=== PATIENT | female | born 1965 | race Caucasian/White ===

== ENCOUNTER → 2017-03-30 | Outpatient (CLI) | payer OTHER ==
--- NOTE | 2017-03-30 12:08 | XR ---
EXAMINATION TYPE: XR shoulder complete RT DATE OF EXAM: 03/30/2017 COMPARISON: NONE HISTORY: Pain TECHNIQUE: Shoulder examined in 3 FINDINGS: The humeral head articulates with the glenoid. The acromio-clavicular junction is normal. No acute fractures or dislocations are evident. A follow up study can be performed 7-10 days from acute trauma for continued pain. IMPRESSION: 1. Normal Shoulder
== END ==
LOC: RADXRMAIN 11:44
PROVIDERS: ATTEND Emergency Medicine
DX: S43.401A Unspecified sprain of right shoulder joint, initial encounter (principal)

== ENCOUNTER 2018-06-18 10:09 | Observation (INO) | payer OTHER ==
[2018-06-18] MEDS ORDERED: NITROGLYCERIN OINT 1 INCH/GM PACKET TOPICAL STA (10:37)
[2018-06-18] MEDS ORDERED: ASPIRIN 81 MG PO STA (10:37)
[2018-06-18] MEDS ORDERED: ONDANSETRON 4 MG/2 ML VIAL IVP STA (10:41)
--- NOTE | 2018-06-18 10:41 | ED ---
General Adult HPI - General Chief complaint: Chest Pain Stated complaint: Chest Pain Time Seen by Provider: 06/18/18 10:10 Source: patient, RN notes reviewed Mode of arrival: wheelchair Limitations: no limitations - History of Present Illness Initial comments: This is a 52-year-old female presents emergency Department complaining of chest pain since 6:30 this morning. Patient states the pain radiates to her left shoulder and she had an episode of diaphoresis dizziness and nausea. Patient states she has not vomited. Patient states she was never short of breath. Patient states the pain is much better but continues at this time. Patient describes it as a pressure on her chest. Patient denies any history of diabetes hypertension high cholesterol. Patient states she has no family history that she knows of heart disease. Patient does not smoke. Patient has not had an episode of this in the past. Patient denies any abdominal pain patient denies any vomiting diarrhea. Patient denies headache patient denies any numbness or weakness. - Related Data Home Medications Medication Instructions Recorded Confirmed ALPRAZolam [Xanax] 0.5 mg PO HS PRN 06/18/18 06/18/18 Albuterol Inhaler [Ventolin Hfa 2 puff INHALATION RT-Q6H PRN 06/18/18 06/18/18 Inhaler] Cyanocobalamin (Vitamin B-12) 1,000 mcg PO DAILY 06/18/18 06/18/18 [Vitamin B-12] Montelukast Sodium [Singulair] 10 mg PO HS 06/18/18 06/18/18 Multivitamins, Thera [Multivitamin 1 tab PO DAILY 06/18/18 06/18/18 (formulary)] Topiramate [Topamax] 100 mg PO TID 06/18/18 06/18/18 Allergies Allergy/AdvReac Type Severity Reaction Status Date / Time codeine Allergy Unknown Verified 06/18/18 12:01 Review of Systems ROS Statement: Those systems with pertinent positive or pertinent negative responses have been documented in the HPI. ROS Other: All systems not noted in ROS Statement are negative. Past Medical History Past Medical History: Asthma, Seizure Disorder History of Any Multi-Drug Resistant Organisms: None Reported Past Surgical History: Tonsillectomy Past Psychological History: No Psychological Hx Reported Smoking Status: Never smoker Past Alcohol Use History: None Reported Past Drug Use History: None Reported General Exam - General Exam Comments Initial Comments: GENERAL: Patient is well-developed and well-nourished. Patient is nontoxic and well- hydrated and is in mild distress. ENT: Neck is soft and supple. No significant lymphadenopathy is noted. Oropharynx is clear. Moist mucous membranes. Neck has full range of motion without eliciting any pain. EYES: The sclera were anicteric and conjunctiva were pink and moist. Extraocular movements were intact and pupils were equal round and reactive to light. Eyelids were unremarkable. PULMONARY: Unlabored respirations. Good breath sounds bilaterally. No audible rales rhonchi or wheezing was noted. CARDIOVASCULAR: There is a regular rate and rhythm without any murmurs gallops or rubs. ABDOMEN: Soft and nontender with normal bowel sounds. No palpable organomegaly was noted. There is no palpable pulsatile mass. SKIN: Skin is clear with no lesions or rashes and otherwise unremarkable. NEUROLOGIC: Patient is alert and oriented x3. Cranial nerves II through XII are grossly intact. Motor and sensory are also intact. Normal speech, volume and content. Symmetrical smile. MUSCULOSKELETAL: Normal extremities with adequate strength and full range of motion. No lower extremity swelling or edema. No calf tenderness. LYMPHATICS: No significant lymphadenopathy is noted PSYCHIATRIC: Normal psychiatric evaluation. Normal interpersonal interactions appears functionally intact in deals appropriately with others. No signs of depression. No signs of anxiety. Limitations: no limitations Course Vital Signs 06/18/18 06/18/18 10:10 12:02 Temperature 98.5 F Pulse Rate 72 Respiratory 20 0 L Rate Blood Pressure 127/79 O2 Sat by Pulse 99 Oximetry Medical Decision Making - Medical Decision Making EKG shows normal sinus rhythm at 63 bpm AL interval is 120 QRS is 82 QT interval 412 QTC is 421. Patient's EKG shows no ST segment elevation or depression or T wave abnormalities are noted. Chest x-ray shows no acute abnormality. Patient received aspirin and Nitropaste to the emergency department she was chest pain-free when I reevaluated her. I spoke with Dr. Spicer he agreed to admit the patient admitted the patient I wrote admitting orders I started the patient heparin for the unstable angina continue the heparin Nitropaste and aspirin on the floor. I consult to cardiology. - Lab Data Result diagrams: 06/18/18 10:54 06/18/18 10:54 Lab Results 0906/18/18 06/18/18 Range/Units 10:54 10:54 10:54 WBC 5.9 (3.8-10.6) k/uL RBC 4.45 (3.80-5.40) m/uL Hgb 12.9 (11.4-16.0) gm/dL Hct 39.4 (34.0-46.0) % MCV 88.5 (80.0-100.0) fL MCH 29.0 (25.0-35.0) pg MCHC 32.8 (31.0-37.0) g/dL RDW 13.1 (11.5-15.5) % Plt Count 256 (150-450) k/uL Neutrophils % 58 % Lymphocytes % 26 % Monocytes % 5 % Eosinophils % 7 % Basophils % 1 % Neutrophils # 3.4 (1.3-7.7) k/uL Lymphocytes # 1.5 (1.0-4.8) k/uL Monocytes # 0.3 (0-1.0) k/uL Eosinophils # 0.4 (0-0.7) k/uL Basophils # 0.1 (0-0.2) k/uL PT (9.0-12.0) sec INR (<1.2) APTT (22.0-30.0) sec Sodium 144 (137-145) mmol/L Potassium 3.9 (3.5-5.1) mmol/L Chloride 113 H (98-107) mmol/L Carbon Dioxide 21 L (22-30) mmol/L Anion Gap 10 mmol/L BUN 11 (7-17) mg/dL Creatinine 0.96 (0.52-1.04) mg/dL Est GFR (CKD-EPI)AfAm 78 (>60 ml/min/1.73 sqM) Est GFR (CKD-EPI)NonAf 68 (>60 ml/min/1.73 sqM) Glucose 86 (74-99) mg/dL Calcium 9.3 (8.4-10.2) mg/dL Magnesium 2.1 (1.6-2.3) mg/dL Total Bilirubin 0.3 (0.2-1.3) mg/dL AST 18 (14-36) U/L ALT 24 (9-52) U/L Alkaline Phosphatase 50 (38-126) U/L Total Creatine Kinase 58 (30-135) U/L CK-MB (CK-2) 1.4 (0.0-2.4) ng/mL CK-MB (CK-2) Rel Index 2.4 Troponin I <0.012 (0.000-0.034) ng/mL Total Protein 6.3 (6.3-8.2) g/dL Albumin 3.5 (3.5-5.0) g/dL 06/18/18 Range/Units 10:54 WBC (3.8-10.6) k/uL RBC (3.80-5.40) m/uL Hgb (11.4-16.0) gm/dL Hct (34.0-46.0) % MCV (80.0-100.0) fL MCH (25.0-35.0) pg MCHC (31.0-37.0) g/dL RDW (11.5-15.5) % Plt Count (150-450) k/uL Neutrophils % % Lymphocytes % % Monocytes % % Eosinophils % % Basophils % % Neutrophils # (1.3-7.7) k/uL Lymphocytes # (1.0-4.8) k/uL Monocytes # (0-1.0) k/uL Eosinophils # (0-0.7) k/uL Basophils # (0-0.2) k/uL PT 10.0 (9.0-12.0) sec INR 1.0 (<1.2) APTT 23.8 (22.0-30.0) sec Sodium (137-145) mmol/L Potassium (3.5-5.1) mmol/L Chloride (98-107) mmol/L Carbon Dioxide (22-30) mmol/L Anion Gap mmol/L BUN (7-17) mg/dL Creatinine (0.52-1.04) mg/dL Est GFR (CKD-EPI)AfAm (>60 ml/min/1.73 sqM) Est GFR (CKD-EPI)NonAf (>60 ml/min/1.73 sqM) Glucose (74-99) mg/dL Calcium (8.4-10.2) mg/dL Magnesium (1.6-2.3) mg/dL Total Bilirubin (0.2-1.3) mg/dL AST (14-36) U/L ALT (9-52) U/L Alkaline Phosphatase (38-126) U/L Total Creatine Kinase (30-135) U/L CK-MB (CK-2) (0.0-2.4) ng/mL CK-MB (CK-2) Rel Index Troponin I (0.000-0.034) ng/mL Total Protein (6.3-8.2) g/dL Albumin (3.5-5.0) g/dL Critical Care Time Critical Care Time: Yes Total Critical Care Time: 35 Disposition Clinical Impression: Unstable angina pectoris Disposition: ADMITTED IP TO THIS HOSP Referrals: Nonstaff,Physician [Primary Care Provider] - 1-2 days Time of Disposition: 12:38
[2018-06-18 11:12] LABS: Basophils # (A) 0.1 k/uL (0-0.2); Basophils % (A) 1 %; Eosinophils # (A) 0.4 k/uL (0-0.7); Eosinophils % (A) 7 %; HCT 39.4 % (34.0-46.0); HGB 12.9 gm/dL (11.4-16.0); Lymphocytes # (A) 1.5 k/uL (1.0-4.8); Lymphocytes % (A) 26 %; MCHC 32.8 g/dL (31.0-37.0); MCV 88.5 fL (80.0-100.0); Mean Platelet Volume 6.6; Monocytes # (A) 0.3 k/uL (0-1.0); Monocytes % (A) 5 %; Neutrophils # (A) 3.4 k/uL (1.3-7.7); Neutrophils % (A) 58 %; Platelet Count 256 k/uL (150-450); RBC 4.45 m/uL (3.80-5.40); RDW 13.1 % (11.5-15.5); WBC 5.9 k/uL (3.8-10.6)
[2018-06-18 11:20] LABS: Partial Thromboplastin Time 23.8 sec (22.0-30.0)
[2018-06-18 11:31] LABS: Albumin 3.5 g/dL (3.5-5.0); Calcium 9.3 mg/dL (8.4-10.2); Magnesium 2.1 mg/dL (1.6-2.3); Potassium 3.9 mmol/L (3.5-5.1); Total Bilirubin 0.3 mg/dL (0.2-1.3); Total Protein 6.3 g/dL (6.3-8.2)
[2018-06-18 11:39] LABS: Creatine Kinase 58 U/L (30-135)
[2018-06-18 11:53] LABS: Creatine Kinase MB 1.4 ng/mL (0.0-2.4); Troponin I <0.012 ng/mL (0.000-0.034)
--- NOTE | 2018-06-18 12:01 | XR ---
EXAMINATION TYPE: XR chest 2V DATE OF EXAM: 06/18/2018 COMPARISON: None HISTORY: 52-year-old female with chest pain TECHNIQUE: Frontal and lateral views FINDINGS: The cardiomediastinal silhouette, aorta, and pulmonary vasculature are within normal limits. A trace pleural effusion is noted on the lateral view. Old healed bilateral rib fracture deformities. IMPRESSION: Trace effusion noted on the lateral view. Otherwise, no acute process seen.
[2018-06-18] MEDS ORDERED: HEPARIN SODIUM,PORCINE 5,000 UNIT/ML 1 ML VIAL IV ONE (12:36)
[2018-06-18] MEDS ORDERED: NITROGLYCERIN SL TABS 0.4 MG TAB SUBLINGUAL PRN (12:38)
[2018-06-18] MEDS ORDERED: HEPARIN SOD,PORK IN 0.45% NACL 25,000 UNIT in 0.45% NACL 1 500ML.BAG IV SCH (12:45)
[2018-06-18] MEDS ORDERED: ALPRAZolam 0.5 MG TAB PO PRN (15:44)
[2018-06-18] MEDS ORDERED: ALBUTEROL NEBULIZED 2.5 MG/3 ML INHALATION PRN (15:44)
--- NOTE | 2018-06-18 15:58 | P.HPIM ---
History of Present Illness H&P Date: 06/18/18 The patient is a 51-year-old female with past medical history of asthma, seasonal allergies, and seizure disorder, presented to the ED for acute onset of substernal chest pain. The patient notes that her pain started this morning when she arrived to the hospital with her who was scheduled to undergo a cardiac stress test at 7 am. While the patient's was undergoing the stress test, she began having 10/10, substernal, pressure-like chest pain, with radiation to the right arm, with associated shortness of breath, nausea, vomiting, and dizziness. The pain was relieved with sublingual nitroglycerin, and had no pleuritic component. She has never had such pain before. While in the ED, the pain gradually resolved over the following 2-4 hours. The patient denied any fever, cough, chills, abdominal pain, diarrhea, constipation, visual disturbances, headaches, recent travel, lower extremity swelling, or calf pain. The patient did endorse having to take long prednisone taper courses during her childhood. Review of Systems Pertinent positives and negatives as discussed in HPI, a complete review of systems was performed and all other systems are negative. Past Medical History Past Medical History: Asthma, Seizure Disorder Additional Past Medical History / Comment(s): Last seizure about 6 yrs ago, migraines. History of Any Multi-Drug Resistant Organisms: None Reported Past Surgical History: Tonsillectomy Past Anesthesia/Blood Transfusion Reactions: No Reported Reaction Smoking Status: Never smoker - Past Family History Father Family Medical History: Hyperlipidemia Additional Family Medical History / Comment(s): Pt does not know father's medical history other than he has high cholesterol. Mother History Unknown: Yes Additional Family Medical History / Comment(s): Pt states her mother did not discuss her medical history. She at the age of 77yrs. Medications and Allergies Home Medications Medication Instructions Recorded Confirmed Type ALPRAZolam [Xanax] 0.5 mg PO HS PRN 06/18/18 06/18/18 History Albuterol Inhaler [Ventolin Hfa 2 puff INHALATION RT-Q6H PRN 06/18/18 06/18/18 History Inhaler] Cyanocobalamin (Vitamin B-12) 1,000 mcg PO DAILY 06/18/18 06/18/18 History [Vitamin B-12] Montelukast Sodium [Singulair] 10 mg PO HS 06/18/18 06/18/18 History Multivitamins, Thera [Multivitamin 1 tab PO DAILY 06/18/18 06/18/18 History (formulary)] Topiramate [Topamax] 100 mg PO TID 06/18/18 06/18/18 History Allergies Allergy/AdvReac Type Severity Reaction Status Date / Time codeine Allergy Unknown Verified 06/18/18 12:01 Iodinated Contrast- Oral and Allergy Anaphylaxis Verified 06/18/18 14:04 IV Dye peanut Allergy Anaphylaxis Verified 06/18/18 14:04 shellfish derived [Shellfish] Allergy Anaphylaxis Verified 06/18/18 14:04 tree nut Allergy Anaphylaxis Verified 06/18/18 14:04 Physical Exam Vitals: Vital Signs Temp Pulse Pulse Resp BP BP Pulse Ox 06/18/18 14:11 75 18 06/18/18 13:55 97.7 F 75 18 113/70 99 06/18/18 13:47 98.5 F 67 18 103/68 100 06/18/18 13:39 67 18 103/68 100 06/18/18 12:02 0 L 06/18/18 10:10 98.5 F 72 20 127/79 99 Intake and Output 06/18/18 06/18/18 06/18/18 06:59 14:59 22:59 Intake Total 150 Balance 150 Intake: Amount of Fluid Infused ( 150 ml) Other: Voiding Method Toilet Weight 62.8 kg General: non toxic, no distress, appears at stated age, normal weight Derm: no unusual rashes/lesions no unusual ecchymoses, warm, dry Head: atraumatic, normocephalic, symmetric Eyes: EOMI, no lid lag, anicteric sclera, pupils equal round reactive to light ENT: Nose and ears atraumatic, no thrush, no pharyngeal erythema Neck: No thyromegaly, no cervical lymphadenopathy, trachea midline, supple Mouth: no lip lesion, mucus membranes moist Cardiovascular: S1S2 reg, no murmur, positive posterior tibial pulse bilateral, no edema, capillary refill less than 2 seconds Lungs: CTA bilateral, no rhonchi, no rales , no accessory muscle use Abdominal: soft, nontender to palpation, no guarding, no appreciable organomegaly, normal bowel sounds Ext: no gross muscle atrophy, muscle strength 5 out of 5 in all 4 extremities grossly, no contractures, Neuro: CN II-XI grossly intact, light touch intact all 4 extremities, finger to nose within normal limits, Psych: Alert, oriented, appropriate affect Results CBC & Chem 7: 06/18/18 10:54 06/18/18 10:54 Labs: Abnormal Lab Results - Last 24 Hours (Table) 06/18/18 Range/Units 10:54 Chloride 113 H (98-107) mmol/L Carbon Dioxide 21 L (22-30) mmol/L Thrombosis Risk Factor Assmnt - Choose All That Apply Any of the Below Risk Factors Present?: Yes Each Factor Represents 1 point: Age 41-60 years Other Risk Factors: No Other congenital or acquired thrombophilia - If yes, enter type in comment: No Thrombosis Risk Factor Assessment Total Risk Factor Score: 1 Thrombosis Risk Factor Assessment Level: Low Risk Assessment and Plan Plan: Chest pain, suspected unstable angina - C/w Heparin infusion - S/p Aspirin 325 mg. C/w ASA 81 mg qd. - Will trend troponin - Order Echocardiogram - C/w Telemetry monitoring - Will start on Plavix - Nitroglycerin patch - Cardiology consulted, will await recs Seizure disorder - C/w home dose Topamax Asthma - C/w Albuterol inhaler prn and Singulair Seasonal allergies - Flonase prn DVT//GI prophylaxis - Heparin infusion for now - No indication for GI prophylaxis The patient is admitted with an anticipated greater than 2 midnight stay for evaluation of chest pain CODE STATUS:Full-code Discussed with: Patient Anticipated discharge date: 06/20/[address]: Home A total of 70 minutes was spent on the care of this complex patient more than 50 % of the time was spent in counseling and care coordination.
[2018-06-18 17:35] LABS: Creatine Kinase 45 U/L (30-135)
[2018-06-18 17:48] LABS: Creatine Kinase MB 1.1 ng/mL (0.0-2.4); Troponin I <0.012 ng/mL (0.000-0.034)
[2018-06-18] MEDS: TOPIRAMATE 100 MG TAB PO SCH ×2 (19:00→19:52)
[2018-06-18] MEDS: NITROGLYCERIN OINT 1 INCH/GM PACKET TOPICAL SCH (19:00)
[2018-06-18] MEDS: CLOPIDOGREL 75 MG TAB PO SCH (19:03)
[2018-06-18 19:45] VITALS: RESP 16
[2018-06-18] MEDS ORDERED: MONTELUKAST 10 MG TAB PO SCH (21:00)
[2018-06-18 23:42] LABS: Creatine Kinase 44 U/L (30-135)
[2018-06-18 23:55] LABS: Creatine Kinase MB 0.9 ng/mL (0.0-2.4); Troponin I <0.012 ng/mL (0.000-0.034)
[2018-06-19] MEDS: NITROGLYCERIN OINT 1 INCH/GM PACKET TOPICAL SCH ×2 (00:28→05:23)
[2018-06-19 03:02] VITALS: TEMP 98.3
[2018-06-19 07:26] LABS: HGB 11.8 gm/dL (11.4-16.0); MCHC 32.7 g/dL (31.0-37.0); MCV 88.7 fL (80.0-100.0); Mean Platelet Volume 6.7; Platelet Count 223 k/uL (150-450); RBC 4.06 m/uL (3.80-5.40); RDW 13.2 % (11.5-15.5); WBC 4.9 k/uL (3.8-10.6)
[2018-06-19 07:54] LABS: Calcium 8.7 mg/dL (8.4-10.2); Potassium 3.9 mmol/L (3.5-5.1)
[2018-06-19] MEDS ORDERED: ACETAMINOPHEN TAB 325 MG TAB PO PRN (08:37)
[2018-06-19] MEDS ORDERED: ASPIRIN 325 MG TAB PO SCH (09:00)
[2018-06-19] MEDS ORDERED: CYANOCOBALAMIN 500 MCG TAB PO SCH (09:00)
--- NOTE | 2018-06-19 10:27 | ECHOF ---
Referral Reason:Chest pain MEASUREMENTS -------- HEIGHT: 162.6 cm WEIGHT: 62.6 kg BP: 113/70 RVIDd: 2.3 cm (< 3.3) IVSd: 1.1 cm (0.6 - 1.1) LVIDd: 3.7 cm (3.9 - 5.3) LVPWd: 0.7 cm (0.6 - 1.1) IVSs: 1.0 cm LVIDs: 2.9 cm LVPWs: 1.1 cm LA Diam: 3.3 cm (2.7 - 3.8) Ao Diam: 3.1 cm (2.0 - 3.7) AV Cusp: 1.9 cm (1.5 - 2.6) LA Diam: 2.9 cm (2.7 - 3.8) MV EXCURSION: 16.594 mm (> 18.000) MV EF SLOPE: 114 mm/s (70 - 150) EPSS: 0.5 cm MV E Scott: 0.76 m/s MV DecT: 193 ms MV A Scott: 0.69 m/s MV E/A Ratio: 1.10 RAP: 5.00 mmHg RVSP: 18.36 mmHg FINDINGS -------- Sinus rhythm. This was a technically good study. LV size, wall thickness and systolic function are normal, with an EF greater than 55%. The left xenia tricular size is normal. The right ventricle is normal in size. The left atrial size is normal. The right atrial size is normal. The aortic valve is trileaflet, and appears structurally normal. No aortic stenosis or regurgitation. Mild mitral regurgitation is present. Mild tricuspid regurgitation present. There is no evidence of pulmonary hypertension. The right v entricular systolic pressure, as measured by Doppler, is 18.36mmHg. There is no pulmonic regurgitation present. The aortic root size is normal. There is no pericardial effusion. CONCLUSIONS -------- 1. The left ventricular size is normal. 2. The right ventricle is normal in size. 3. The left atrial size is normal. 4. The right atrial size is normal. 5. The aortic valve is trileaflet, and appears structurally normal. No aortic stenosis or regurgitati on. 6. Mild mitral regurgitation is present. 7. Mild tricuspid regurgitation present. 8. There is no evidence of pulmonary hypertension. 9. The right ventricular systolic pressure, as measured by Doppler, is 18.36mmHg. 10. There is no pulmonic regurgitation present. 11. The aortic root size is normal. 12. There is no pericardial effusion. [employer]: Mony Romano RDCS
--- NOTE | 2018-06-19 12:27 | P.CRDCN ---
History of Present Illness History of present illness: Mrs. Roberts is a pleasant 52-year-old female past medical history significant for asthma and seizure disorder. She denies history of coronary artery disease, hypertension, dyslipidemia or diabetes mellitus. She has never seen a marketing planning manager for any reason. We have been asked to see her in consultation for chest pain. She states yesterday she was with her while he was undergoing a stress test. She hadn't yet eaten for the day. Once her was done they were walking out to the car and she started feeling a heavy pressure sensation in her chest. They sat down in the car and were going to get something to eat, however, the discomfort in her chest was persisting and she was starting to become light headed, nauseated and mildly diaphoretic. She denies shortness of breath or palpitations. Her pain ultimately subsided on its own with no specific alleviating factors. Nitropaste was applied in ED but was causing a headache so was removed. EKG reveals sinus mechanism with no acute ST or T-wave abnormalities. Chest xray negative for an acute cardiopulmonary process. Laboratory data reviewed, hgb 11.8, plt 223, sodium 144, potassium 3.9, creatinine 1.01, magnesium 2.1, cardiac enzymes negative x3, HDL 56, LDL 85. She takes no daily cardiac medications. She is on Topamax, Singulair, Ventolin and Xanax. She has never had a stress echocardiogram to review. Review of Systems At the time of my exam: CONSTITUTIONAL: Denies fever. Denies chills. EYES: Denies blurred vision. Denies vision changes. Denies eye pain. EARS, NOSE, MOUTH & THROAT: Denies headache. Denies sore throat. Denies ear pain. CARDIOVASCULAR: Denies chest pain. Denies shortness of breath. Denies orthopnea. Denies PND. Denies palpitations. RESPIRATORY: Denies cough. GASTROINTESTINAL: Denies abdominal pain. Denies diarrhea. Denies constipation. Denies nausea. Denies vomiting. MUSCULOSKELETAL: Denies myalgias. INTEGUMENTARY: Denies pruitis. Denies rash. NEUROLOGIC: Denies numbness. Denies tingling. Denies weakness. PSYCHIATRIC: Denies anxiety. Denies depression. ENDOCRINE: Denies fatigue. Denies weight change. Denies polydipsia. Denies polyurina. GENITOURINARY: Denies burning, hematuria or urgency with micturation. HEMATOLOGIC: Denies history of anemia. Denies bleeding. Past Medical History Past Medical History: Asthma, Seizure Disorder Additional Past Medical History / Comment(s): Last seizure about 6 yrs ago, migraines. History of Any Multi-Drug Resistant Organisms: None Reported Past Surgical History: Tonsillectomy Past Anesthesia/Blood Transfusion Reactions: No Reported Reaction Smoking Status: Never smoker - Past Family History Father Family Medical History: Hyperlipidemia Additional Family Medical History / Comment(s): Pt does not know father's medical history other than he has high cholesterol. Mother History Unknown: Yes Additional Family Medical History / Comment(s): Pt states her mother did not discuss her medical history. She at the age of 77yrs. Medications and Allergies Home Medications Medication Instructions Recorded Confirmed Type ALPRAZolam [Xanax] 0.5 mg PO HS PRN 06/18/18 06/18/18 History Albuterol Inhaler [Ventolin Hfa 2 puff INHALATION RT-Q6H PRN 06/18/18 06/18/18 History Inhaler] Cyanocobalamin (Vitamin B-12) 1,000 mcg PO DAILY 06/18/18 06/18/18 History [Vitamin B-12] Montelukast Sodium [Singulair] 10 mg PO HS 06/18/18 06/18/18 History Multivitamins, Thera [Multivitamin 1 tab PO DAILY 06/18/18 06/18/18 History (formulary)] Topiramate [Topamax] 100 mg PO TID 06/18/18 06/18/18 History Allergies Allergy/AdvReac Type Severity Reaction Status Date / Time codeine Allergy Unknown Verified 06/18/18 12:01 Iodinated Contrast- Oral and Allergy Anaphylaxis Verified 06/18/18 14:04 IV Dye peanut Allergy Anaphylaxis Verified 06/18/18 14:04 shellfish derived [Shellfish] Allergy Anaphylaxis Verified 06/18/18 14:04 tree nut Allergy Anaphylaxis Verified 06/18/18 14:04 Physical Exam Vitals: Vital Signs Temp Pulse Pulse Resp BP BP Pulse Ox 06/19/18 08:00 16 06/19/18 07:52 98.3 F 72 16 102/64 98 06/19/18 04:00 16 06/19/18 03:01 98.3 F 74 16 98/59 99 06/19/18 00:00 16 06/18/18 23:34 99.5 F 84 16 106/67 96 06/18/18 19:59 16 06/18/18 19:44 97.9 F 69 16 102/64 97 06/18/18 16:00 75 18 06/18/18 14:11 75 18 06/18/18 13:55 97.7 F 75 18 113/70 99 06/18/18 13:47 98.5 F 67 18 103/68 100 06/18/18 13:39 67 18 103/68 100 Intake and Output 06/18/18 06/19/18 06/19/18 22:59 06:59 14:59 Intake Total 113.22 Balance 113.22 Intake: Intake, IV Titration 113.22 Amount Heparin Sod,Pork in 0.45% 113.22 NaCl 25,000 unit In 0.45 % NaCl 1 500ml.bag @ 12 UNITS/KG/HR 14.8 mls/hr IV .Q24H [facility] Rx#: [id number] Other: Voiding Method Toilet Toilet Toilet # Voids 2 3 Blood pressure 102/64 heart rate 72 afebrile maintaining oxygen saturation on room air GENERAL: This is a 52-year-old female in no apparent distress at the time of my examination. HEENT: Head is atraumatic, normocephalic. Pupils are equal, round. Sclerae anicteric. Conjunctivae are clear. Mucous membranes of the mouth are moist. Neck is supple. There is no jugular venous distention. No carotid bruit is heard. LUNGS: Clear to auscultation no wheezes, rales or rhonchi. No chest wall tenderness is noted on palpation or with deep breathing. HEART: Regular rate and rhythm without murmurs, rubs or gallops. S1 and S2 heard. ABDOMEN: Soft, nontender. Bowel sounds are heard. No organomegaly noted. EXTREMITIES: No evidence of peripheral edema and no calf tenderness noted. VASCULAR: Radial and dorsalis pedis pulses palpated, no evidence of clubbing. NEUROLOGIC: Patient is awake, alert and oriented x3. Results 06/19/18 06:31 06/19/18 06:31 Cardiac Enzymes 06/18/18 06/18/18 Range/Units 16:58 22:53 CK-MB (CK-2) 1.1 0.9 (0.0-2.4) ng/mL Troponin I <0.012 <0.012 (0.000-0.034) ng/mL Coagulation 06/18/18 06/19/18 Range/Units 19:55 06:31 APTT 37.4 H 48.7 H (22.0-30.0) sec Lipids 06/19/18 Range/Units 06:31 Triglycerides 106 (<150) mg/dL Cholesterol 162 (<200) mg/dL HDL Cholesterol 56 (40-60) mg/dL CBC 06/19/18 Range/Units 06:31 WBC 4.9 (3.8-10.6) k/uL RBC 4.06 (3.80-5.40) m/uL Hgb 11.8 (11.4-16.0) gm/dL Hct 36.0 (34.0-46.0) % Plt Count 223 (150-450) k/uL Comprehensive Metabolic Panel 06/19/18 Range/Units 06:31 Sodium 144 (137-145) mmol/L Potassium 3.9 (3.5-5.1) mmol/L Chloride 118 H (98-107) mmol/L Carbon Dioxide 20 L (22-30) mmol/L BUN 14 (7-17) mg/dL Creatinine 1.01 (0.52-1.04) mg/dL Glucose 80 (74-99) mg/dL Calcium 8.7 (8.4-10.2) mg/dL Current Medications Generic Name Dose Route Start Last Admin Trade Name Freq PRN Reason Stop Dose Admin Acetaminophen 650 mg 06/19/18 08:37 06/19/18 08:40 Tylenol Tab PO 650 mg Q6HR PRN Administration Fever and/ or Mild Pain Albuterol Sulfate 2.5 mg 06/18/18 15:44 Ventolin Nebulized INHALATION RT-Q6H PRN Shortness Of Breath Alprazolam 0.5 mg 06/18/18 15:44 Xanax PO HS PRN Anxiety Aspirin 325 mg 06/19/18 09:00 Aspirin PO DAILY [facility] Clopidogrel Bisulfate 75 mg 06/18/18 16:00 06/18/18 19:03 Plavix PO 75 mg DAILY [facility] Administration Cyanocobalamin 1,000 mcg 06/19/18 09:00 Vitamin B-12 PO DAILY [facility] Montelukast Sodium 10 mg 06/18/18 21:00 06/18/18 19:52 Singulair PO 10 mg HS [facility] Administration Nitroglycerin 0.4 mg 06/18/18 12:38 Nitrostat SUBLINGUAL Q5M PRN Chest Pain Topiramate 100 mg 06/18/18 16:00 06/18/18 19:52 Topamax PO 100 mg TID [facility] Administration Intake and Output 06/18/18 06/19/18 06/19/18 22:59 06:59 14:59 Intake Total 113.22 Balance 113.22 Intake: Intake, IV Titration 113.22 Amount Heparin Sod,Pork in 0.45% 113.22 NaCl 25,000 unit In 0.45 % NaCl 1 500ml.bag @ 12 UNITS/KG/HR 14.8 mls/hr IV .Q24H [facility] Rx#: [id number] Other: Voiding Method Toilet Toilet Toilet # Voids 2 3 06/19/18 06:31 06/19/18 06:31 Assessment and Plan Assessment: ASSESSMENT Chest pain, atypical. An acute coronary event has been ruled out with no EKG evidence of ischemia and negative cardiac enzymes. Asthma PLAN Obtain 2D echocardiogram and doppler study to assess cardiac structure and function. Perform stress echocardiogram to assess for stress induced cardiac ischemia. If stress test is normal she is stable from a cardiac perspective. Follow up with Dr. Sosa in 2-3 weeks. Thank you kindly for this consultation. Nurse Practitioner note has been reviewed, I agree with a documented findings and plan of care. Patient was seen and examined.
[2018-06-19 12:39] VITALS: BP 95/65; PULSE 70
[2018-06-19] MEDS: CLOPIDOGREL 75 MG TAB PO SCH (13:04)
[2018-06-19] MEDS: TOPIRAMATE 100 MG TAB PO SCH (13:04)
--- NOTE | 2018-06-19 19:30 | P.DS ---
Providers Date of admission: 06/18/18 12:38 Expected date of discharge: 06/19/18 Attending physician: Sean Roberts MD Consults: 06/18/18 12:38 Consult Physician Urgent Consulting Provider: [facility] Consult Reason/Comments: Unstable angina Do you want consulting provider notified?: Yes Primary care physician: Physician Nonstaff Hospital Course: The patient is a 51-year-old female with a past medical history of asthma, and seizure disorder who presented to the ED for acute onset of substernal chest pain. The pain was 10 out of 10, pressure-like, with radiation to the right arm , and associated shortness of breath with nausea, vomiting, and dizziness. The patient's EKG and troponins were negative. Cardiology was consulted and recommended an exercise stress test with subsequent failed to show any ischemia. The patient underwent an echocardiogram which showed normal left ventricular EF of 55% with mild MR and mild TR. The patient is presently stable , and ready for discharge home with follow-up with cardiology as an outpatient. Physical Examination General: Awake, alert, in no acute distress HEENT: NC/AT, anicteric sclerae, moist conjunctiva, no lid-lag, PERRLA, oropharynx clear, no erythema, exudates Cardiovascular: S1/S2 wnl, no murmurs, rubs, or gallops Lungs: Clear to auscultation, normal respiratory effort, no accessory muscle use Abdominal: Soft, nontender, non-distended, no guarding, rebound, or rigidity, normoactive bowel sounds Skin: Warm, dry Extremities: No edema or contractures Psychiatric: Alert and oriented to person, place and time, appropriate affect, Intact judgment Neuro: CN II-XI grossly intact, sensation to light touch grossly present throughout, no focal sensory deficits Discharge diagnosis: Chest pain, unspecified, ischemic w/u negative; Asthma, Seizure disorder A total of 60 minutes of time were spent preparing this complex discharge summary. Pertinent Studies: Echocardiogram: LVEF greater than 55%, mild MR, mild TR, RVSP 18.36 mmHg. Patient Condition at Discharge: Stable Plan - Discharge Summary Discharge Rx Participant: No New Discharge Prescriptions: Continue Albuterol Inhaler [Ventolin Hfa Inhaler] 2 puff INHALATION RT-Q6H PRN PRN Reason: Shortness Of Breath Topiramate [Topamax] 100 mg PO TID Multivitamins, Thera [Multivitamin (formulary)] 1 tab PO DAILY Montelukast Sodium [Singulair] 10 mg PO HS Cyanocobalamin (Vitamin B-12) [Vitamin B-12] 1,000 mcg PO DAILY ALPRAZolam [Xanax] 0.5 mg PO HS PRN PRN Reason: Anxiety Discharge Medication List ALPRAZolam [Xanax] 0.5 mg PO HS PRN 06/18/18 [History] Albuterol Inhaler [Ventolin Hfa Inhaler] 2 puff INHALATION RT-Q6H PRN 06/18/18 [ History] Cyanocobalamin (Vitamin B-12) [Vitamin B-12] 1,000 mcg PO DAILY 06/18/18 [ History] Montelukast Sodium [Singulair] 10 mg PO HS 06/18/18 [History] Multivitamins, Thera [Multivitamin (formulary)] 1 tab PO DAILY 06/18/18 [History ] Topiramate [Topamax] 100 mg PO TID 06/18/18 [History] Follow up Appointment(s)/Referral(s): Nonstaff,Physician [Primary Care Provider] - 1-2 days Ray Sosa MD [STAFF PHYSICIAN] - 1-2 Days (Office will call in a few days with an appt) Patient Instructions/Handouts: Chest Pain (ED) Discharge Disposition: HOME SELF-CARE
--- NOTE | 2018-06-22 09:29 | P.STRESS ---
- Stress Test Note Stress Test Results/Findings: Exam Performed: stress echo exercise Exam Date: 06/19/18 Reason for Exam: chest pain Height: 5 ft 4 in Weight: 62.8 kg Protocol: Echo Stress Stage: 2 Duration of Exercise: 6:17 Resting Heart Rate: 76 Resting Blood Pressure: 102/75 Maximum Achieved Heart Rate: 157 Maximum Achieved Blood Pressure: 131/72 85% PMHR: 142 100% PMHR: 167 METS: 7.3 Technologist Comment: Stress Test Results/Findings: This is a 52-year-old female with history of COPD being evaluated for symptoms of chest pain. Patient EKG showed sinus rhythm with normal SC interval and QRS duration with mild nonspecific ST-T changes. Blood pressure at rest is 120/75 with pulse rate of 76. Patient Walker on the Levy protocol for about 6 minutes and 17 seconds achieving a maximum heart rate of 157 with a blood pressure of 120/79. EKG taken during and after exercise did not reveal any changes to suggest ischemia. Echo data: Baseline echo images show normal wall motion and thickening. Exercise echo images showed augmentation of wall motion and thickening in all segments. Final impression: #1. Negative stress test #2. Negative stress echo
--- NOTE | 2018-06-22 15:50 | ECHOS ---
Stress Test Results/Findings: Exam Performed: stress echo exercise Exam Date: 06/19/18 Reason for Exam: chest pain Height: 5 ft 4 in Weight: 62.8 kg Protocol: Echo Stress Stage: 2 Duration of Exercise: 6:17 Resting Heart Rate: 76 Resting Blood Pressure: 102/75 Maximum Achieved Heart Rate: 157 Maximum Achieved Blood Pressure: 131/72 85% PMHR: 142 100% PMHR: 167 METS: 7.3 Technologist Comment: Stress Test Results/Findings: This is a 52-year-old female with history of COPD being evaluated for symptoms of chest pain. Patient EKG showed sinus rhythm with normal ND interval and QRS duration with mild nonspecific ST-T changes. Blood pressure at rest is 120/75 with pulse rate of 76. Patient Walker on the Levy protocol for about 6 minutes and 17 seconds achieving a maximum heart rate of 157 with a blood pressure of 120/79. EKG taken during and after exercise did not reveal any changes to suggest ischemia. Echo data: Baseline echo images show normal wall motion and thickening. Exercise echo images showed augmentation of wall motion and thickening in all segments. Final impression: #1. Negative stress test #2. Negative stress echo MTDD
== END 2018-06-19 16:55 | disposition home or self-care (01) ==
LOC: EC 10:09 → 3OBS 12:38
PROVIDERS: ADMIT Family Medicine; ATTEND Family Medicine
DX: R07.89 Other chest pain (principal); R61 Generalized hyperhidrosis; R11.2 Nausea with vomiting, unspecified; J45.909 Unspecified asthma, uncomplicated; G40.909 Epilepsy, unspecified, not intractable, without status epilepticus; G44.40 Drug-induced headache, not elsewhere classified, not intractable; T46.3X5A Adverse effect of coronary vasodilators, initial encounter; G43.909 Migraine, unspecified, not intractable, without status migrainosus; Z79.899 Other long term (current) drug therapy; Z88.5 Allergy status to narcotic agent; Z91.018 Allergy to other foods; Z91.010 Allergy to peanuts; Z91.013 Allergy to seafood; Z91.041 Radiographic dye allergy status; Z83.49 Family history of other endocrine, nutritional and metabolic diseases
CPT/HCPCS: 99291 ×2; 96365 ×2; 96375 ×2; 96376 ×2; 96366 ×2; 36415; 93005; 93306; 93351; 80061; 80053; 80048; 82550; 82553; 83735; 84484; 85025; 85027; 85610; 85730 ×2; 71046; G0378 ×2; J1644 ×2; J2405